=== PATIENT | female | born 1950 | race Caucasian/White ===

== ENCOUNTER 2018-09-08 09:13 | Day surgery (SDC) | payer MEDICARE, MEDICAID ==
[2018-09-08] VITALS (8 sets, daily range): BP systolic 130–174; BP diastolic 70–86
[~2018-09-08] VITALS: Ht 170.2 cm; Wt 72.4 kg
[~2018-09-08 09:13] MED LIST: ATOR20TA66 PO; LANTUS SUBCUT; LISI10TA4 PO; METF500T PO; SOTA80TA73 PO; WARF5TAB PO
[2018-09-08] MEDS ORDERED: normal saline 1000ml 1,000 ML IV PRN (09:40)
[2018-09-08] MEDS ORDERED: NOVLG SQ (11:00)
[2018-09-08] MEDS ORDERED: GABA-532 PO (11:00)
[2018-09-08] MEDS ORDERED: ALEN70TA13 PO (11:00)
[2018-09-08] MEDS ORDERED: INSU100I25 SQ (11:00)
[2018-09-08] MEDS ORDERED: COU5T PO (11:00)
[2018-09-08] MEDS ORDERED: ATOR20TA PO (11:00)
[2018-09-08] MEDS ORDERED: WARF4TAB69 PO (11:00)
[2018-09-08] MEDS ORDERED: SOTA80TA PO (11:00)
[2018-09-08] MEDS ORDERED: LIDOcaine 1%/PF 5ML 10 MG/ML VIAL ONE (13:25)
[2018-09-08] MEDS ORDERED: midazolam 2 mg/2 ml injection IV PRN (13:25)
[2018-09-08] MEDS ORDERED: fentaNYL/PF 50MCG/1 ML 2ML syringe IV PRN (13:25)
[2018-09-08] MEDS ORDERED: heparin sodium, porcine/PF 100unit/ml 5ML syringe ICATH ONE (13:25)
[2018-09-08] MEDS ORDERED: heparin sodium, porcine/PF 100unit/ml 5ML syringe ONE ×2 (14:02→14:03)
[2018-09-08] MEDS ORDERED: fentaNYL/PF 50MCG/1 ML 2ML syringe ONE (14:02)
[2018-09-08] MEDS ORDERED: midazolam 2 mg/2 ml injection ONE (14:02)
== END 2018-09-08 17:00 | disposition home or self-care (01) ==
LOC: SSTAY O 09:13
PROVIDERS: ATTEND Radiology Vascular & Interventional Radiology
DX: C50.911 Malignant neoplasm of unspecified site of right female breast (principal); E11.9 Type 2 diabetes mellitus without complications; I10 Essential (primary) hypertension; Z90.710 Acquired absence of both cervix and uterus; Z90.11 Acquired absence of right breast and nipple; Z79.4 Long term (current) use of insulin; Z79.899 Other long term (current) drug therapy; Z88.8 Allergy status to other drugs, medicaments and biological substances
CPT/HCPCS: 36415; 36561; 76937; 77001; 82948; 85610; 99152; 99153; C1788; J1642; J2001; J2250; J3010; J7030; A6219; C1894